=== PATIENT | female | born 1960 | race Caucasian/White ===

== ENCOUNTER 2018-08-05 12:59 | Emergency (ER) | payer OTHER, SELFPAY ==
[2018-08-05 13:05] VITALS: BP 102/66; PULSE 67; RESP 16; TEMP 36.4; O2SAT 100; BMI 23.1
--- NOTE | 2018-08-05 13:05 | ED.BACK ---
HPI - Back Pain/Injury General Chief Complaint: Back Pain/Injury Stated Complaint: Hurt back Time Seen by Provider: 08/05/18 13:05 Related Data Home Medications Medication Instructions Recorded Confirmed [ALEVE] PRN #0 01/12/11 Previous Rx's Medication Instructions Recorded CYANOCOBALAMIN (VITAMIN B-12) 1,000 mcg IJ Q WEEK #1 ml 03/02/11 (Cyanocobalamin Injection) bupropion HCl [Wellbutrin XL] 150 mg PO QDAY #30 08/18/11 zolpidem 5 - 10 mg PO HS #30 10/12/11 sertraline [Zoloft] 50 mg PO Q DAY #90 01/19/12 LEVOTHYROXINE SODIUM 0.137 mg PO QDAY #90 03/16/12 Allergies Allergy/AdvReac Type Severity Reaction Status Date / Time Codeine Allergy Unknown ITCH/HIVES Uncoded 12/20/17 13:09 Discharge Plan Departure Prescriptions: No Action [ALEVE] PRN Qty: 0 RF: 0 CYANOCOBALAMIN (VITAMIN B-12) (Cyanocobalamin Injection) 1,000 mcg IJ Q WEEK Qty: 1 RF: 0 bupropion HCl [Wellbutrin XL] 150 MG tablet extended release 24 hr 150 mg PO QDAY Qty: 30 RF: 3 zolpidem 10 MG tablet 5 - 10 mg PO HS Qty: 30 RF: 3 sertraline [Zoloft] 50 MG tablet 50 mg PO Q DAY Qty: 90 RF: 1 LEVOTHYROXINE SODIUM 0.137 mg PO QDAY Qty: 90 RF: 0
--- NOTE | 2018-08-05 13:08 | ED_ITS ---
HPI - Back Pain/Injury <YVAN Martin - Last Filed: 08/05/18 22:07> General Chief Complaint: Back Pain/Injury Stated Complaint: Hurt back Time Seen by Provider: 08/05/18 13:05 Source: patient Mode of arrival: ambulatory Limitations: no limitations History of Present Illness HPI Narrative: 58-year-old female with history of hypothyroidism and is a nonsmoker here for complaint of pain to her left lower back area since yesterday. 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 She denies any direct trauma to the lower back. She is ambulatory although it is painful for her due to the back pain. She denies any loss of bladder or bowel control. She denies any urinary symptoms. Positive p.o. intake. No nausea or vomiting. She denies any other concerns or complaints at this time. MD Complaint: back pain Related Data Home Medications Medication Instructions Recorded Confirmed [ALEVE] PRN #0 01/12/11 Previous Rx's Medication Instructions Recorded CYANOCOBALAMIN (VITAMIN B-12) 1,000 mcg IJ Q WEEK #1 ml 03/02/11 (Cyanocobalamin Injection) bupropion HCl [Wellbutrin XL] 150 mg PO QDAY #30 08/18/11 zolpidem 5 - 10 mg PO HS #30 10/12/11 sertraline [Zoloft] 50 mg PO Q DAY #90 01/19/12 LEVOTHYROXINE SODIUM 0.137 mg PO QDAY #90 03/16/12 cyclobenzaprine 10 mg PO TID PRN #15 tab-cap 08/05/18 prednisone 40 mg PO DAILY #8 tab 08/05/18 Allergies Allergy/AdvReac Type Severity Reaction Status Date / Time codeine Allergy Verified 08/05/18 13:05 Review of Systems <YVAN Martin - Last Filed: 08/05/18 22:07> Review of Systems All systems reviewed & are unremarkable except as noted in HPI and below Constitutional Denies chills, Denies fever(s), Denies lethargy and Denies weakness Eyes Denies change in vision, Denies eye discharge, Denies irritation and Denies loss of vision ENT Ears, Nose, Mouth, and Throat: Denies change in voice, Denies neck pain and Denies sore throat Cardiovascular Denies chest pain, Denies irregular heart rhythm, Denies lightheadedness, Denies palpitations, Denies dyspnea, Denies dyspnea on exertion and Denies orthopnea Respiratory Denies cough, Denies dyspnea, Denies dyspnea on exertion and Denies wheezing Gastrointestinal Gastrointestinal: Denies abdominal pain, Denies change in bowel habits, Denies diarrhea, Denies nausea and Denies vomiting Genitourinary Denies hematuria, Denies flank pain, Denies urinary incontinence and Denies urinary urgency Musculoskeletal Denies neck pain Integumentary/Breasts Denies pruritus, Denies erythema, Denies rash and Denies wounds Neurologic Denies confusion, Denies loss of vision and Denies weakness Psychiatric Denies anxiety, Denies confusion, Denies depression, Denies homicidal ideation and Denies suicidal ideation Endocrine Denies palpitations Hematologic/Lymphatic Denies easy bruising Allergic/Immunologic Denies wheezing Exam <YVAN Martin - Last Filed: 08/05/18 22:07> Initial Vital Signs Initial Vital Signs: Vital Signs Temperature 97.5 F L 08/05/18 13:05 Pulse Rate 67 08/05/18 13:05 Respiratory Rate 16 08/05/18 13:05 Blood Pressure 102/66 08/05/18 13:05 Pulse Oximetry 100 08/05/18 13:05 Const General: cooperative and well developed Nutritional Appearance: well nourished Orientation: alert, awake, oriented x3 and not confused [facility] Mouth: oral mucosae normal and moist mucous membranes Eyes Conjunctivae: conjunctivae normal Sclera: sclerae normal Pupils: PERRL EOM: EOM intact bilaterally Resp Effort & Inspection: normal respiratory effort, able to speak in complete sentences, no respiratory distress and no use of accessory muscles Auscultation: clear to auscultation bilaterally, no rales, no rhonchi and no wheezes Cardio Rate: regular rate Rhythm: regular rhythm Heart Sounds: no click, no gallops, no murmurs and no rubs Pulses: normal peripheral pulses GI Inspection: non-distended Palpation: soft, no hepatosplenomegaly, No guarding, No pulsatile mass and No tender Auscultation: normal bowel sounds General: No CVA tenderness Back/Spine/Pelvis Thoracic/Lumbar Spine: thoracic and lumbar spine normal to inspection, paraspinal tenderness and other (No deformities to the lumbar spine area. No ecchymosis. Left lumbar paraspinal muscle spasm. Pain radiates into the left buttocks left thigh) Other: Distal sensation is intact to bilateral extremities. Distal pulses intact bilateral extremities. Distal range of motions intact bilateral extremities. Skin General: no rashes or lesions noted, No jaundice and No petechiae Neuro General: alert, oriented x3, gait normal and no focal motor deficits Speech: speech normal Extrem General: full ROM, no clubbing, cyanosis or edema, no pedal edema and no calf tenderness <Jonny Lopez DO - Last Filed: 08/07/18 19:45> Initial Vital Signs Initial Vital Signs: Vital Signs Temperature 97.5 F L 08/05/18 13:05 Pulse Rate 67 08/05/18 13:05 Respiratory Rate 16 08/05/18 13:05 Blood Pressure 102/66 08/05/18 13:05 Pulse Oximetry 100 08/05/18 13:05 Course <YVAN Martin - Last Filed: 08/05/18 22:07> Orders Ordered: Discontinued Medications Cyclobenzaprine HCl (Flexeril) 10 mg PO NOW ONE Stop: 08/05/18 13:20 Last Admin: 08/05/18 13:24 Dose: 10 mg Ibuprofen (Advil) 800 mg PO NOW ONE Stop: 08/05/18 13:20 Last Admin: 08/05/18 13:24 Dose: 800 mg Vital Signs - 8 hr 08/05/18 13:05 Temperature 97.5 F L Pulse Rate 67 Respiratory Rate 16 Blood Pressure 102/66 Pulse Oximetry 100 <DO Caro Kelly Last Filed: 08/07/18 19:45> Orders Ordered: Discontinued Medications Cyclobenzaprine HCl (Flexeril) 10 mg PO NOW ONE Stop: 08/05/18 13:20 Last Admin: 08/05/18 13:24 Dose: 10 mg Ibuprofen (Advil) 800 mg PO NOW ONE Stop: 08/05/18 13:20 Last Admin: 08/05/18 13:24 Dose: 800 mg Vital Signs - 8 hr 08/05/18 13:05 Temperature 97.5 F L Pulse Rate 67 Respiratory Rate 16 Blood Pressure 102/66 Pulse Oximetry 100 MDM - Back Pain/Injury <YVAN Martin - Last Filed: 08/05/18 22:07> MDM Narrative Medical decision making narrative: Signs and symptoms presents as acute muscle strain into the lumbar region. She is prescribed cyclobenzaprine along with [id number] ibuprofen. Sinus symptoms also present with sciatica she is prescribed short course of prednisone. Rest area. Gentle range of motion to help keep muscles fluids. Follow up with primary care provider next week. For any worsening symptoms return to the emergency room. Discharge Plan Departure Patient Disposition: Home Clinical Impression: Back pain Discharge Date/Time: 08/05/18 14:01 Interventions: ED Discharge Assessment Last Done: 08/05/18 14:00 Instructions: DI for Back Spasm Activity Restrictions/Additional Instructions: Signs and symptoms presents as acute lower back strain with muscle spasm and sciatica. You are prescribed a muscle relaxer called cyclobenzaprine to help with the muscle spasm use as directed. No driving while on the muscle relaxer. Use [id number] ibuprofen for discomfort anti-inflammatory effects. Due to the sciatica your also prescribed a short course of prednisone use as directed. Rest area. Gentle range of motion to painful areas to help keep muscles loose. May use heat to area 20 min at a time a few times a day over the next few days. Follow up with primary care provider later this week. For any worsening symptoms return to the emergency room. Prescriptions: New cyclobenzaprine 10 mg tablet 10 mg PO TID PRN (Reason: muscle spasm) Qty: 15 RF: 0 prednisone 20 mg tablet 40 mg PO DAILY Qty: 8 RF: 0 No Action [ALEVE] PRN Qty: 0 RF: 0 CYANOCOBALAMIN (VITAMIN B-12) (Cyanocobalamin Injection) 1,000 mcg IJ Q WEEK Qty: 1 RF: 0 bupropion HCl [Wellbutrin XL] 150 MG tablet extended release 24 hr 150 mg PO QDAY Qty: 30 RF: 3 zolpidem 10 MG tablet 5 - 10 mg PO HS Qty: 30 RF: 3 sertraline [Zoloft] 50 MG tablet 50 mg PO Q DAY Qty: 90 RF: 1 LEVOTHYROXINE SODIUM 0.137 mg PO QDAY Qty: 90 RF: 0 Referrals: [facility] [Provider Group] Stand Alone Forms: Work/School Restrictions <Jonny Lopez DO - Last Filed: 08/07/18 19:45> Cosign ED Attending Cosignature Attestation: I was available for consultation during this patient's emergency department encounter
[2018-08-05] MEDS: CYCLOBENZAPRINE 10 MG TABLET PO (13:24)
[2018-08-05] MEDS: IBUPROFEN 400 MG TABLET 800 MG PO (13:24)
[2018-08-05 14:00] VITALS: BP 96/54; PULSE 65; RESP 15; O2SAT 98
== END 2018-08-05 14:01 | disposition home or self-care (01) ==
PROVIDERS: Emergency Provider Nurse Practitioner Family
DX: S39.012A Strain of muscle, fascia and tendon of lower back, initial encounter (principal); X50.0XXA Overexertion from strenuous movement or load, initial encounter; Y99.0 Civilian activity done for income or pay; M54.30 Sciatica, unspecified side
CPT/HCPCS: 99282; 99283